=== PATIENT | female | born 1945 | race Caucasian/White ===

== ENCOUNTER 2021-03-22 00:28 | Day surgery (SDC) | payer OTHER, SELFPAY ==
[2021-03-08 12:39] VITALS: BMI 30.9
[2021-03-22 08:55] VITALS: BP 146/69; PULSE 64; RESP 16; TEMP 36.1; O2SAT 99
[2021-03-22] MEDS: LACTATED RINGERS 1,000 ML 150 ML IV CONT (09:02)
--- NOTE | 2021-03-22 09:26 | WPDANESEPPF ---
Anes - Initial Pre Proc Eval Procedure: Operation Date: 03/22/21 10:00 Proposed Procedures p Esophagogastroduodenoscopy - Héctor Mora MD Date/Time: 03/22/21 09:26 Surgeon: Héctor Mora MD Pre Op Diagnosis: nausea, epigastric pain, abnormal CAT scan Patient Data Age: 76 Gender: F Height: 1.59 m Weight: 68.9 kg Last Vital Signs Temp 36.1 C L 03/22/21 08:55 Pulse 64 03/22/21 08:55 Resp 16 03/22/21 08:55 BP 146/69 H 03/22/21 08:55 Pulse Ox 99 03/22/21 08:55 Allergies Allergy/AdvReac Type Severity Reaction Status Date / Time aspirin AdvReac Intermediate Difficulty Verified 03/22/21 08:53 Breathing amoxicillin AdvReac Mild Diarrhea Verified 03/22/21 08:53 codeine AdvReac Mild Nausea and Verified 03/22/21 08:53 Vomiting Home Medications Medication Instructions Recorded Confirmed Type calcium citrate 200 mg 1 tablet PO DAILY 02/28/21 03/22/21 History calcium-vitamin D3 6.25 mcg (250 unit) tablet fexofenadine 180 mg tablet 180 mg PO DAILY 02/28/21 03/22/21 History fish, borage, flaxseed oils-omega 1 cap PO DAILY 02/28/21 03/22/21 History 3,6,9 comb no.1 1,200 mg capsule fluticasone propionate 50 1 spray INTRANASAL DAILY 02/28/21 03/22/21 History mcg/actuation nasal spray,suspension ketotifen fumarate 0.025 % (0.035 1 drp EACH EYE BID 02/28/21 03/22/21 History %) eye drops lisinopril 2.5 mg tablet 2.5 mg PO DAILY 02/28/21 03/22/21 History lisinopril 5 mg tablet 5 mg PO DAILY 02/28/21 03/22/21 History melatonin 10 mg capsule 10 mg PO QHS 02/28/21 03/22/21 History multivitamin 1 tablet PO DAILY 02/28/21 03/22/21 History Patient hx anesthesia problems: none Family hx anesthesia problems: none Results Review: All pre-operative results and documents have been reviewed as part of the pre-operative evaluation. [facility] Past Medical History Medical History (Updated 12/29/21 @ 09:28 by Yung Morrison MD) Breast cancer Heart block Overweight Pacemaker Surgical History Surgical History (Updated 03/22/21 @ 09:28 by Yung Morrison MD) History of cholecystectomy History of mastectomy S/P breast reconstruction Family History Family History Other Family history of arthritis Family history of malignant neoplasm Family history of premature coronary heart disease Hypertension Social History Social History Smoking status: Never smoker Alcohol intake: current Alcohol use details: rare social occasions Substance use: never Substance use type: does not use Living arrangements: alone Spiritual care concerns: No Anes - Eval Final PreProcedure Day of Procedure 03/22/21 09:26 Patient weight: overweight Heart: regular rate and rhythm Lungs: clear to auscultation Airway: Mallampati scale class II Neurological: alert and oriented Last oral intake: >/= 8 hours ASA classification: III Emergent: no Anesthetic plan: proceed Anesthesia type and monitoring: general GIVS and standard monitoring Results Review: All pre-operative results and documents have been reviewed as part of the pre-operative evaluation. Informed Consent: The patient's anesthetic plan and its attendant risks and benefits were discussed with the patient/family/POA. Questions were solicited and answers provided to the satisfaction of the patient/family/POA.
--- NOTE | 2021-03-22 09:41 | WPDGICN ---
Assessment and Plan Assessment and plan (1) Nausea & vomiting: Code(s): R11.2 - Nausea with vomiting, unspecified Status: Acute Assessment and Plan: patient with persistent recurrent nausea vomiting over the last 6 months. Plan is for EGD to assess more thoroughly. (2) Epigastric abdominal pain: Code(s): R10.13 - Epigastric pain Status: Acute Assessment and Plan: Epigastric abdominal pain noted. Plan is for EGD to assess more thoroughly. Trial of PPI may be prudent. Further recommendations after EGD. (3) History of cholecystectomy: Code(s): Z90.49 - Acquired absence of other specified parts of digestive tract Status: Acute Assessment and Plan: Patient has a prior history of cholecystectomy making gallstones as the etiology for recent pancreatitis unlikely. Should she have recurrent pancreatitis MRCP would be prudent. Low-fat diet advised at this time. GI Consult Note Consult date/time: 03/22/21 09:41 HPI: Keeley Allen is a 76 year old female Presents for EGD. Patient has episodes of nausea every other day associated with some vomiting frequently. She states she has to be careful how much she eats as overeating will typically cause more nausea vomiting. She states symptoms have been present for 6 months. She presents today for EGD because of these symptoms. She does notice mild epigastric discomfort. She was hospitalized in September at [facility] in [place] with acute pancreatitis. Etiology unclear. She has a very distant history of cholecystectomy. She admits to only social alcohol intake. Family history is noncontributory. Review of Systems Review of Systems: All systems reviewed & are unremarkable except as noted in HPI and below [facility] Past Medical History Medical History (Updated 03/22/21 @ 09:43 by Héctor Mora MD) Breast cancer Heart block Overweight Pacemaker Surgical History Surgical History (Updated 03/22/21 @ 09:44 by Héctor Mora MD) History of cholecystectomy History of mastectomy S/P breast reconstruction Family History Family History Other Family history of arthritis Family history of malignant neoplasm Family history of premature coronary heart disease Hypertension Social History Social History Smoking status: Never smoker Alcohol intake: current Alcohol use details: rare social occasions Substance use: never Substance use type: does not use Living arrangements: alone Spiritual care concerns: No Meds Home Medications and Allergies Home Medications Medication Instructions Recorded Confirmed Type calcium citrate 200 mg 1 tablet PO DAILY 02/28/21 03/22/21 History calcium-vitamin D3 6.25 mcg (250 unit) tablet fexofenadine 180 mg tablet 180 mg PO DAILY 02/28/21 03/22/21 History fish, borage, flaxseed oils-omega 1 cap PO DAILY 02/28/21 03/22/21 History 3,6,9 comb no.1 1,200 mg capsule fluticasone propionate 50 1 spray INTRANASAL DAILY 02/28/21 03/22/21 History mcg/actuation nasal spray,suspension ketotifen fumarate 0.025 % (0.035 1 drp EACH EYE BID 02/28/21 03/22/21 History %) eye drops lisinopril 2.5 mg tablet 2.5 mg PO DAILY 02/28/21 03/22/21 History lisinopril 5 mg tablet 5 mg PO DAILY 02/28/21 03/22/21 History melatonin 10 mg capsule 10 mg PO QHS 02/28/21 03/22/21 History multivitamin 1 tablet PO DAILY 02/28/21 03/22/21 History Allergies Allergy/AdvReac Type Severity Reaction Status Date / Time aspirin AdvReac Intermediate Difficulty Verified 03/22/21 08:53 Breathing amoxicillin AdvReac Mild Diarrhea Verified 03/22/21 08:53 codeine AdvReac Mild Nausea and Verified 03/22/21 08:53 Vomiting Vital Signs Vital Signs - 24 hr 03/22/21 08:55 Temperature 96.9 F L Pulse Rate 64 Respiratory Rate 16 Blood Pressure 146/69 H Pu
[2021-03-22 10:36] VITALS: BP 130/60; PULSE 66; RESP 24; O2SAT 99
[2021-03-22 10:46] VITALS: BP 118/64; PULSE 60; RESP 18; O2SAT 100
[2021-03-22 10:56] VITALS: BP 103/71; PULSE 65; RESP 17; O2SAT 100
== END 2021-03-22 11:01 | disposition home or self-care (01) ==
PROVIDERS: PCP Internal Medicine; Visit Provider Internal Medicine Gastroenterology
PROC: 0DJ08ZZ Inspection of Upper Intestinal Tract, Via Natural or Artificial Opening Endoscopic (ICD-10-PCS; CPT 43235; principal; 2021-03-22 10:00)
DX: R11.2 Nausea with vomiting, unspecified (principal); R10.13 Epigastric pain; Q39.4 Esophageal web; K26.9 Duodenal ulcer, unspecified as acute or chronic, without hemorrhage or perforation; K25.9 Gastric ulcer, unspecified as acute or chronic, without hemorrhage or perforation; K29.50 Unspecified chronic gastritis without bleeding; Z90.49 Acquired absence of other specified parts of digestive tract; Z95.0 Presence of cardiac pacemaker
CPT/HCPCS: 43239; 43450; 87081; 88305; 88342; J2704; J7120